=== PATIENT | female | born 1955 | race Caucasian/White ===

== ENCOUNTER 2020-03-16 22:39 | Observation (INO) | payer BC ==
[~2020-03-16] VITALS: Ht 157.5 cm; Wt 101.6 kg
--- NOTE | 2020-03-16 23:40 | NUR ---
Pt arrived to the floor via stretcher. Pt came in from [place]. Pt heart sounds were normal S1 and S2 sounds and lungs sounds were clear. Pt has her call light within reach.
[2020-03-17] VITALS (12 sets, daily range): BP systolic 118–158; BP diastolic 51–72; PULSE 77–107; TEMP 98–100.9
[2020-03-17] MEDS ORDERED: LIPITOR 40MG TA40 MG PO (00:27)
[2020-03-17] MEDS ORDERED: WELLBUTRIN XL300 M1 PO (00:31)
[2020-03-17] MEDS ORDERED: CYMBALTA 30MG30 MG PO (00:33)
[2020-03-17] MEDS ORDERED: ZYPREXA ZYDIS5 MG PO (00:34)
[2020-03-17] MEDS ORDERED: BENICAR 20MG TA20 MG PO (00:37)
[2020-03-17] MEDS ORDERED: PRIL40 PO (00:38)
[2020-03-17] MEDS ORDERED: SYNTHROID0.075 MG/T PO (00:39)
[2020-03-17] MEDS ORDERED: PROVIGIL 100MG100 MG PO (00:40)
[2020-03-17] MEDS ORDERED: CALCIUM CITRATE1 TA7 PO (00:43)
[2020-03-17] MEDS ORDERED: VITAMIN D 400400 IU PO (00:47)
[2020-03-17] MEDS ORDERED: LANTUS100 U/ML SQ (00:48)
[2020-03-17] MEDS ORDERED: OZEMPIC0.25 MG/0. SQ (00:49)
--- NOTE | 2020-03-17 02:45 | NUR ---
Pt had some complaints of a headache. Dr. Reynoso was called to see if pt could have some Tylenol she had a temp over 100 and I asked if she could have something PRN. Pt was given Tylenol at this time. Pt has his call [facility] within reach.
--- NOTE | 2020-03-17 04:52 | NUR ---
Pt currently resting in bed. Pt has no complaints of a headache at this time. Pt has her call light within reach and his bed is in lowest position.
--- NOTE | 2020-03-17 07:05 | NUR ---
Reported off to AMANDA Sorto. Pt has her call light within reach and no complaints of pain at this time.
--- NOTE | 2020-03-17 07:30 | NUR ---
Patient resting in bed at this time. Patient is alert and oriented, answers questions appropriately. Patient is independent in the room and changed into gown and removed personal garments and jewlery in preperation for surgery. Jewlery was secured in a cup with a lid and stored with patient belongings. Patient denies pain or further needs at this time, call light within reach.
--- NOTE | 2020-03-17 11:16 | NUR ---
Patient left floor to PACU via bed at approximately 0900. Patient arrived back to floor from PACU via bed at approximately 1110. Post op checks initiated. Patient is drowsy but rouses easily and is alert and oriented while awake. Patient denies pain or nausea. Call light within reach, at bedside.
--- NOTE | 2020-03-17 18:14 | NUR ---
Discharge teaching completed. Discussed follow up appointment, discharge instructions, and all questions asked and answered. INT removed, catheter intact, hemostasis achieved. Patient and confirm that personal belongings are gathered. Patient escorted to ED entrance via wheelchair where she entered a private vehicle.
== END 2020-03-17 18:10 | disposition home or self-care (01) ==
LOC: SURG 22:39
PROVIDERS: ADMIT Surgery
DX: K80.10 Calculus of gallbladder with chronic cholecystitis without obstruction (principal); E11.9 Type 2 diabetes mellitus without complications; E66.9 Obesity, unspecified; K21.9 Gastro-esophageal reflux disease without esophagitis; I10 Essential (primary) hypertension; Z20.828 Contact with and (suspected) exposure to other viral communicable diseases; E78.5 Hyperlipidemia, unspecified; F32.9 Major depressive disorder, single episode, unspecified; G47.30 Sleep apnea, unspecified; E03.9 Hypothyroidism, unspecified; Z98.84 Bariatric surgery status; Z79.4 Long term (current) use of insulin; Z79.899 Other long term (current) drug therapy; Z79.890 Hormone replacement therapy
CPT/HCPCS: G0378; J0690; J1815; J2405; J2543; J2704; J3010; J7120

== ENCOUNTER 2021-04-03 09:20 | Day surgery (SDC) | payer BC, MEDICARE ==
[~2021-04-03] VITALS: Ht 160 cm; Wt 100.0 kg
[~2021-04-03 09:20] MED LIST: BENICAR 20MG TA20 MG PO; CALCIUM CITRATE1 TA7 PO; CYMBALTA 30MG30 MG PO; LANTUS100 U/ML SQ; LIPITOR 40MG TA40 MG PO; OZEMPIC0.25 MG/0. SQ; PRIL40 PO; PROVIGIL 100MG100 MG PO; SYNTHROID0.075 MG/T PO; VITAMIN D 400400 IU PO; WELLBUTRIN XL300 M1 PO; ZYPREXA ZYDIS5 MG PO
[2021-04-03] MEDS ORDERED: LANTUS100 U/ML SQ (09:45)
[2021-04-03] MEDS ORDERED: SYNTHROID0.088 MG/T PO (09:46)
[2021-04-03] MEDS ORDERED: ONE-A-DAY ESSE1 EACH PO (09:50)
[2021-04-03 10:17] VITALS: BP 137/84; PULSE 73; TEMP 97.9
[2021-04-03 11:25] VITALS: BP 122/71; PULSE 74; TEMP 97.7
[2021-04-03 11:40] VITALS: BP 126/68; PULSE 74
[2021-04-03 11:55] VITALS: BP 143/76; PULSE 88
--- NOTE | 2021-04-03 12:20 | NUR ---
1125- Pt returns from endo procedure via cart and RN assist to [facility] [place] [facility]. Pt ambulates from cart to recliner with RN assist. Monitors on and alarms set. Call light within reach. Pt alert and oriented. Pt requests diet pepsi and muffin. Pt denies any pain or nausea. 1140- Pt taking food and drink well. No complications noted. BG 159. 1155- Discharge instructions given to pt. All questions answered to patient and 's satisfaction. Handed to pt education material and discharge information. 1220- Pt transferred out of the hospital via wheelchair and RN assist, to private vehicle driven by .
== END 2021-04-03 12:20 | disposition home or self-care (01) ==
LOC: SDCO 09:20
DX: R19.7 Diarrhea, unspecified (principal); K59.00 Constipation, unspecified; K57.30 Diverticulosis of large intestine without perforation or abscess without bleeding; K62.89 Other specified diseases of anus and rectum; K21.9 Gastro-esophageal reflux disease without esophagitis; M19.90 Unspecified osteoarthritis, unspecified site; I10 Essential (primary) hypertension; E78.5 Hyperlipidemia, unspecified; E11.9 Type 2 diabetes mellitus without complications; G47.33 Obstructive sleep apnea (adult) (pediatric); E03.9 Hypothyroidism, unspecified; E78.2 Mixed hyperlipidemia; F32.A Depression, unspecified; Z79.890 Hormone replacement therapy; Z79.899 Other long term (current) drug therapy; Z99.89 Dependence on other enabling machines and devices; Z90.49 Acquired absence of other specified parts of digestive tract; Z79.4 Long term (current) use of insulin; Z83.3 Family history of diabetes mellitus; Z80.3 Family history of malignant neoplasm of breast
CPT/HCPCS: J2704; J7120

== ENCOUNTER → 2021-06-27 | Outpatient (CLI) | payer MEDICARE, BC ==
[~2021-06-27] MED LIST changes: +ONE-A-DAY ESSE1 EACH PO; +SYNTHROID0.088 MG/T PO
== END ==
LOC: COL.RAD 07:52
DX: Z01.812 Encounter for preprocedural laboratory examination (principal); R19.7 Diarrhea, unspecified; R14.0 Abdominal distension (gaseous); R10.9 Unspecified abdominal pain; R19.8 Other specified symptoms and signs involving the digestive system and abdomen; Z90.49 Acquired absence of other specified parts of digestive tract
CPT/HCPCS: Q9967